=== PATIENT | female | born 2000 | race Caucasian/White ===

== ENCOUNTER 2024-12-14 09:53 | Outpatient (REF) | payer MEDICAID, SELFPAY ==
--- OUTSIDE RECORDS SUMMARY | 2024-12-14 10:18 | XMS_ITS | Encounter Summary ---
Author Organization [employer] Address [address] [facility] [address] [place] [address] Care Team Providers Care Home Care Administrator Name Role Phone Unavailable Primary Care Provider Unavailabl e Reason for Referral * Consultation (Routine) - Authorized Specialty Diagnoses / Procedures Referred By Contac t Referred To Contact Dermatology / Family Medicine Diagnoses Grupo Berrios MD [address] [place] [address] Phone: tel: fax: Devan Gerber MD [address] [place] [phone] Phone: tel: fax: Referral ID Status Reason Start Date Expiration Date Visits Requested Visits Authorized [id number] Authorized Consult and Treat 12/14/2024 12/14/2025 1 1 Reason for Visit * Reason Comments Rash Encounter Details Date Type Department Care Team ([facility] st Contact Info) Description 12/14/2024 9:20 AM EDT Office Visit [facility] [address] [place] [id number] Rash (Primary Dx); Bilateral impacted cerumen Social History Tobacco Use Types Packs/Day Years Used Date Smoking Tobacco: Never Smokeless Tobacco: Never Tobacco Cessation:Counseling Given: Not Answered Alcohol Use Standard Drinks/Week Comments Not Currently 0 (1 standard drink = 0.6 oz pur e alcohol) Comments Unknown Sex and Gender Information Value Date Recorded Sex Assigned at Female 12/14/2024 8:38 AM EDT Legal Sex Female 8:36 AM EDT Gender Identity Female 12/14/2024 8:38 AM EDT Sexual Orientation Choose not to disclose 2024 8:38 AM EDT documented as of this encounter Last Filed Vital Signs Vital Sign Reading Time Taken Comments Blood Pressure 110/77 12/14/2024 9:08 AM EDT Pulse 90 12/14/2024 9:08 AM EDT Temperature 36.7 ??C (98.1 ??F) 12/14/2024 9:08 AM ED T Respiratory Rate 16 12/14/2024 9:08 AM EDT Oxygen Saturation 98% 12/14/2024 9:08 AM EDT Inhaled Oxygen Concentration - - Weight 51.3 kg (113 lb) 12/14/2024 9:08 AM EDT Height - - Body Mass Index - - documented in this encounter Plan of Treatment Scheduled Orders Name Type Priority Associated Diagnoses Orde r Schedule Hepatitis B Core Antibody, Total Lab Routine Rash Expected: 12/14/2024 (Approximate), Expires: 12/14/2025 Hepatitis B Surface Antibody, Qualitative Lab Routine Rash Expected: 12/14/2024 (Approximate), Expires: 12/14/2025 Hepatitis B surface antigen, EIA Lab Routine Rash Expected: 12/14/2024 (Approximate), Expires: 12/14/2025 Hepatitis C Antibody with Reflex to HCV, RNA, Quantitative, Real-Time PCR Lab Routine Rash Expected: 12/14/2024 (Approximate), Expires: 12/14/2025 HIV-1/2 Antigen and Antibodies, Fourth Generation, with Reflexes Lab Routine Rash Expected: 12/14/2024 (Approximate), Expires: 12/14/2025 RPR (Monitor) with Reflex to??Titer Lab Routine Rash Expected: 12/14/2024 (Approximate), Expires: 12/14/2025 CBC auto differential Lab Routine Rash Expected: 12/14/2024 (Approximate), Expires: 12/14/2025 Comprehensive Metabolic Panel Lab Routine Rash Expected: 12/14/2024 (Approximate), Expires: 12/14/2025 TSH with Reflex to Free T4 Lab Routine Rash Expected: 12/14/2024 (Approximate), Expires: 12/14/2025 Vitamin B12 Lab Routine Rash Expected: 12/14/2024 (Approximate), Expires: 12/14/2025 Hemoglobin A1c Lab Routine Rash Expected: 12/14/2024 (Approximate), Expires: 12/14/2025 Scheduled Referrals Name Type Priority Associated Diagnoses Orde r Schedule Referral to [facility] Referral Routine Rash Expected: 12/14/2024 (Approximate), Expires: 12/14/2025 documented as of this encounter Visit Diagnoses Diagnosis Rash- Primary Rash and other nonspecific skin eruption Bilateral impacted cerumen Impacted cerumen documented in this encounter
--- OUTSIDE RECORDS SUMMARY | 2024-12-14 10:18 | XMS_ITS | Encounter Summary ---
Author Organization [employer] Address [address] [facility] [address] [place] [address] Care Team Providers Care Industrial Photographer Name Role Phone Unavailable Primary Care Provider Unavailabl e Encounter Details Date Type Department Care Team (Latest Contact Info) Description 12/14/2024 Travel Social History Tobacco Use Types Packs/Day Years Used Date Smoking Tobacco: Never Smokeless Tobacco: Never Alcohol Use Standard Drinks/Week Comments Not Currently 0 (1 standard drink = 0.6 oz pur e alcohol) Comments Unknown Sex and Gender Information Value Date Recorded Sex Assigned at Female 12/14/2024 8:38 AM EDT Legal Sex Female 8:36 AM EDT Gender Identity Female 12/14/2024 8:38 AM EDT Sexual Orientation Choose not to disclose 2024 8:38 AM EDT documented as of this encounter Plan of Treatment Not on file documented as of this encounter Visit Diagnoses Not on filedocumented in this encounter
--- OUTSIDE RECORDS SUMMARY | 2024-12-14 10:18 | XMS_ITS | Encounter Summary ---
Author Organization [employer] Address [address] [facility] [address] [place] [address] Care Team Providers Care Grab Jack Worker Name Role Phone Unavailable Primary Care Provider Unavailabl e Reason for Visit * Reason Onset Date Comments Appointment 12/14/2024 Patient is new t o the clinic and would need a new patient appointment. Encounter Details Date Type Department Care Team ([facility] st Contact Info) Description 12/14/2024 Telephone [facility] [address] [place] [address] Surjit Mercado [place] Appointment (Patient is new to the clinic and would need a new patient appointment.) Social History Tobacco Use Types Packs/Day Years [...] AM EDT documented as of this encounter Miscellaneous Notes * Telephone Encounter - Roshan Lopez - 12/14/2024 10:13 AM EDT Patient added to [facility] New Patient wait list as 12-19-2024 * Telephone Encounter - Surjit Mercado MA - 12/14/2024 10:00 AM EDT Patient is new to the clinic and would need a new patient appointment. documented in this encounter Plan of Treatment Not on file documented as of this encounter Visit Diagnoses Not on filedocumented in this encounter
--- OUTSIDE RECORDS SUMMARY | 2024-12-14 10:18 | XMS_ITS | Clinical Summary ---
Author Organization [employer] Address [address] [facility] [address] [place] [address] Care Team Providers Care Head Of Product Name Role Phone Unavailable Primary Care Provider Unavailabl e Allergies No known active allergies Medications clotrimazole (Lotrimin) 1 % cream Apply topically 2 times daily. 30 g 1 Active triamcinolone (Kenalog) 0.1 % cream Apply topically 2 times daily. 30 g 1 5 Active Active Problems No known active problems Encounters Date Type Department Care Team Description 12/14/2024 9:20 AM EDT Office Visit [facility] [address] [place] [phone] Rash (Primary Dx); Bilateral impacted cerumen 12/14/2024 Telephone [facility] [address] [place] [phone] [place], [place] Appointment (Patient is new to the clinic and would need a new patient appointment.) 12/14/2024 Travel from Last 3 Months Social History Tobacco Use Types Packs/Day Years [...] not to disclose 2024 8:38 AM EDT Last Filed Vital Signs Vital Sign Reading [...] - - Body Mass Index - - Plan of Treatment Health Maintenance Due Date Last Done Comments Depression Screening 1999 HIV Screening 1999 SDOH Screening 1999 Alcohol/Substance Use Screening 2011 Tobacco Screening 2011 Family Planning (PISQ) 10/12/2014 HPV Vaccines (1 - 3-dose series) 10/12/2014 Hepatitis C Screening 10/12/2017 DTaP/Tdap/Td Vaccines (1 - Tdap) 10/12/2018 Hepatitis B Vaccines (1 of 3 - 19+ 3-dose series) 10/12/2018 Pap Smear 10/12/2020 COVID-19 Vaccine (1 - 2023-2 5 season) 2024 Influenza Vaccine (#1) 2024 Zoster Vaccines (1 of 2) 10/12/2049 RSV Patients and Pa tients Aged 60 years or older (1 - 1-dose 75+ series) 10/12/2074 HIB Vaccines Aged Out No longer eligi ble based on patient's age to complete this topic Hepatitis A Vaccines Aged Out No long er eligible based on patient's age to complete this topic IPV Vaccines Aged Out No longer eligi ble based on patient's age to complete this topic Meningococcal Vaccine Aged Out No gregory tien eligible based on patient's age to complete this topic Pneumococcal Vaccine: Pediat rics (0 to 5 Years) and At-Risk Patients (6 to 49) Years) Aged Out No longer eligible b ased on patient's age to complete this topic RSV under 20 months Aged Out No longe r eligible based on patient's age to complete this topic Rotavirus Vaccines Aged Out No longer eligible based on patient's age to complete this topic Insurance [facility] C[facility]
[2024-12-14 11:40] LABS: MANUAL DIFF FLAG NO
[2024-12-14 11:50] LABS: Basophils Absolute Auto 0.1 X10*3/uL (0.0-0.2); Basophils Percent Auto 1.7 % (0-2); Eosinophils Absolute Auto 0.1 X10*3/uL (0.0-0.4); Hematocrit 37.4 % (37.0-47.0); Hemoglobin 12.3 g/dl (12.0-16.0); Imm Gran Abs Auto 0.02 X10*3/uL (0.00-0.03); Imm Gran Pct Auto 0.4 % (0.0-0.4); Lymphocytes Absolute Auto 1.6 X10*3/uL (1.2-4.9); Lymphocytes Percent Auto 28.9 % (20-40); Mean Corpuscular HGB Conc 32.9 g/dl (31.0-35.0); Mean Corpuscular Hemoglobin 26.9 pg (27.0-33.0); Mean Corpuscular Volume 81.8 fL (80.0-98.0); Mean Platelet Volume 9.8 fL (9.4-12.3); Monocytes Absolute Auto 0.5 X10*3/uL (0.1-1.2); Monocytes Percent Auto 8.8 % (2-11); Neutrophils Absolute Auto 3.2 x10*3/uL (2.0-8.3); Neutrophils Percent Auto 58.2 % (45-73); Platelet Count 290 X10*3/uL (160-400); Red Blood Count 4.57 X10*6/uL (4.20-5.50); Red Cell Distribution Width 13.1 % (11.0-16.0); White Blood Count 5.4 X10*3/uL (4.8-10.8)
[2024-12-14 12:01] LABS: Estimated Average Glucose 100 mg/dL; Hemoglobin A1C 105.3352 umol/L; Hemoglobin A1c % 5.1 % (<6.0)
[2024-12-14 12:15] LABS: Alanine Aminotransferase 17 U/L (0-31); Albumin Level 4.2 g/dL (3.5-5.0); Anion Gap 11 (12-20); Aspartate Amino Transferase 26 U/L (5-31); Bilirubin Total 0.4 mg/dL (0.0-1.0); Blood Urea Nitrogen 12 mg/dL (9-16); Calcium 9.1 mg/dL (8.4-10.2); Carbon Dioxide 24 mmol/L (22-29); Chloride 107 mmol/L (96-108); Estimated Glomerular Filt Rate > 60; Glucose Random 85 mg/dL (60-115); Potassium 3.7 mmol/L (3.3-5.1); Sodium 138 mmol/L (135-145); Total Protein 6.8 g/dL (6.5-8.0)
[2024-12-14 12:31] LABS: Alkaline Phosphatase 39 U/L (39-117); TSH reflex Free T4 2.01 uIU/mL (0.32-4.0)
[2024-12-14 12:36] LABS: Vitamin B12 769 pg/mL (200-900)
[2024-12-15 07:36] LABS: HBc Num1 0.06 S/CO (0.00-0.79); HBsAGNum1 0.32 S/CO (0.00-0.99); HIV AB/AG Nonreactive (Nonreactive); HIV Num 1 0.06 S/CO (0.00-0.99); Hepatitis B Core Antibody Nonreactive (Nonreactive); Hepatitis B Surface Antigen Negative (Negative); ~HepC Num1 0.08 S/CO (0.00-0.79); ~Hepatitis B Surface Antibody NONREACTIVE (Nonreactive); ~Hepatitis C Antibody Nonreactive (Nonreactive)
[2024-12-15 09:28] LABS: RPR Rapid Plasma Reagin NON-REACTIVE (NON-REACTIVE)
== END 2024-12-14 09:54 | disposition home or self-care (01) ==
LOC: HO.HHCL 09:53
PROVIDERS: Visit Provider Emergency Medicine
DX: R21 Rash and other nonspecific skin eruption (principal)
CPT/HCPCS: 36415; 80053; 82607; 83036; 84443; 85025; 86592; 86704; 86706; 86803; 87340; 87389